=== PATIENT | female | born 1955 | race Caucasian/White ===

== ENCOUNTER 2022-06-16 10:01 | Outpatient (CLI) | payer MEDICARE ==
[2022-06-16 11:12] LABS: #Basophils 0.1 10x3/uL (0.0-0.2); #Eosinphils 0.2 10x3/uL (0.0-0.5); #Monocytes 0.7 10x3/uL (0.0-1.1); #Neutrophils 4.6 10x3/uL (1.5-8.4); %Basophils 0.9 % (0.0-2.0); %Eosinophils 2.6 % (0.0-6.0); %Lymphocytes 18.6 % (18.0-47.0); %Monocytes 10.2 % (0.0-10.0); %Neutrophils 67.3 % (40.0-75.0); Hemoglobin 12.8 g/dL (12.0-15.5); Mean Corpuscular HGB CONC 33.7 g/dL (32.0-36.0); Mean Corpuscular Hemoglobin 31.1 pg (27.0-33.0); Mean Corpuscular Volume 92.5 fl (81.6-98.3); Mean Platelet Volume 9.7 fl (7.4-10.4); Platelet Count 311 10x3/uL (150-450); Red Blood Cell (RBC) Count 4.11 10x6/uL (3.90-5.03); White Blood Cell (WBC) Count 6.9 10x3/uL (3.5-10.5)
[2022-06-16 11:38] LABS: Anion Gap 13 mmol/L (10-20); BUN (Urea Nitrogen) 17 mg/dL (9.8-20.1); Calc. Creatinine Clearance 0 mL/min (70-130); Calcium 9.2 mg/dL (7.8-10.44); Carbon Dioxide 27 mmol/L (23-31); Chloride 104 mmol/L (98-107); Estimated GFR 67; Glucose 89 mg/dL (80-115); Potassium 4.3 mmol/L (3.5-5.1); Sodium 140 mmol/L (136-145)
== END 2022-06-16 10:02 | disposition home or self-care (01) ==
LOC: LABBT 10:01
PROVIDERS: ATTEND Orthopaedic Surgery
DX: Z01.818 Encounter for other preprocedural examination (principal); M19.011 Primary osteoarthritis, right shoulder; Z20.822 Contact with and (suspected) exposure to COVID-19
CPT/HCPCS: 80048; 85025; 87811; 93005; 93010

== ENCOUNTER 2022-06-19 05:43 | Day surgery (SDC) | payer MEDICARE ==
[2022-06-17 14:44] VITALS: BMI 36.9
[2022-06-19] MEDS ORDERED: Vancomycin (BATCH) 1.5 GRAM/300 ML BAG ONE (06:07)
[2022-06-19] MEDS ORDERED: Tranexamic Acid 1,000 MG/10 ML VIAL ONE (06:07)
[2022-06-19] MEDS ORDERED: Sodium Chloride 0.9% 0 ML ONE (06:08)
[2022-06-19] MEDS ORDERED: Fentanyl 100 MCG/2 ML VIAL ONE ×3 (07:05→10:24)
[2022-06-19] MEDS ORDERED: Midazolam HCl 2 mg/2 ml Vial ONE (07:05)
[2022-06-19] MEDS ORDERED: Sodium Chloride 0.9% 100 ML ONE (07:17)
[2022-06-19] MEDS ORDERED: CEFAZOLIN 2 GM VIAL ONE (07:17)
[2022-06-19] MEDS ORDERED: PROPOFOL 200 MG/20 ML VIAL ONE (07:56)
[2022-06-19] MEDS ORDERED: Lidocaine 1% PF 5 ML VIAL ONE (07:56)
[2022-06-19] MEDS ORDERED: Rocuronium Bromide 10 MG/ML (10ML VIAL) ONE (07:56)
[2022-06-19] MEDS ORDERED: Bupivacaine HCl 0.5%/Epinephrine 1:200,000/PF 30 ml Vial ONE (07:56)
[2022-06-19] MEDS ORDERED: Ondansetron PF 4 MG/2 ML Vial ONE (07:56)
[2022-06-19] MEDS ORDERED: Metoprolol Tartrate 5 MG/5 ML VIAL ONE (07:56)
[2022-06-19] MEDS ORDERED: Dexamethasone 20 MG/5 ML VIAL ONE (07:56)
[2022-06-19] MEDS ORDERED: ePHEDrine 50 MG/ML VIAL ONE (07:56)
[2022-06-19] MEDS ORDERED: SUGAMMADEX SODIUM 200 MG/2 ML VIAL ONE ×2 (08:21→09:59)
[2022-06-19] MEDS ORDERED: Fentanyl 100 MCG/2 ML VIAL IV PRN (08:30)
[2022-06-19] MEDS ORDERED: Promethazine HCl 25 MG/ML VIAL IM PRN (08:30)
[2022-06-19] MEDS ORDERED: traMADol HCl 50 MG TAB PO PRN ×2 (08:30)
[2022-06-19] MEDS ORDERED: Zolpidem Tartrate 5 MG TAB PO PRN (08:30)
[2022-06-19] MEDS ORDERED: Ropivacaine 0.2% 550 ML 550 ML NERVE BLCK SCH (08:30)
[2022-06-19] MEDS ORDERED: Ondansetron PF 4 MG/2 ML Vial IVP PRN (08:30)
[2022-06-19] MEDS ORDERED: HYDROcodone/Acetaminophen 5/325 mg Tablet PO PRN ×2 (08:30)
[2022-06-19] MEDS ORDERED: Ketorolac Tromethamine 30 MG/ML VIAL ONE (10:29)
[2022-06-19] MEDS ORDERED: Ketorolac Tromethamine 30 MG/ML VIAL IVP SCH (12:00)
== END 2022-06-19 13:35 | disposition home or self-care (01) ==
LOC: SDC 05:43
PROVIDERS: ATTEND Orthopaedic Surgery
PROC: 0RRJ00Z Replacement of Right Shoulder Joint with Reverse Ball and Socket Synthetic Substitute, Open Approach (ICD-10-PCS; principal; 2022-06-19)
PROC: 3E0T3BZ Introduction of Anesthetic Agent into Peripheral Nerves and Plexi, Percutaneous Approach (ICD-10-PCS; 2022-06-19)
DX: M19.011 Primary osteoarthritis, right shoulder (principal); M75.21 Bicipital tendinitis, right shoulder; I10 Essential (primary) hypertension; K21.9 Gastro-esophageal reflux disease without esophagitis; Z79.899 Other long term (current) drug therapy
CPT/HCPCS: 23472; 64416; 93005; A4306; J3370; 93010; C1713; C1776; J0690; J1100; J1885; J2250; J2405; J2704; J2795; J3010; J3490

== ENCOUNTER 2022-06-19 21:45 | Observation (INO) | payer MEDICARE ==
[~2022-06-19 21:45] MED LIST: Iopamidol-370 76% 500 ML 1 ML ONE
[2022-06-19 22:58] LABS: #Lymphocytes 0.9 thou/uL (1.20-3.40); #Monocytes 1.2 thou/uL (0.11-0.59); #Neutrophils 12.5 thou/uL (1.40-6.50); %Basophils 0.1 % (0.0-1.0); %Eosinophils 0.2 % (0.0-10.0); %Lymphocytes 6.2 % (21.0-51.0); %Monocytes 8.4 % (0.0-10.0); %Neutrophils 85.1 % (42.0-75.0); Hemoglobin 12.8 g/dL (12.0-16.0); Mean Corpuscular HGB CONC 33.7 g/dL (32.0-36.0); Mean Corpuscular Hemoglobin 32.1 pg (27.0-31.0); Mean Corpuscular Volume 95.4 fL (78.0-98.0); Mean Platelet Volume 7.3 fL (7.4-10.4); Platelet Count 312 thou/uL (130-400); RBC Distribution Width 11.2 % (11.5-14.5); Red Blood Cell (RBC) Count 3.99 mill/uL (4.20-5.40); White Blood Cell (WBC) Count 14.7 thou/uL (4.8-10.8)
[2022-06-19] MEDS ORDERED: Acetaminophen 500 MG TAB ONE (22:58)
[2022-06-19 23:20] LABS: ALT (SGPT) 24 U/L (8-55); AST (SGOT) 30 U/L (5-34); Albumin 4.1 g/dL (3.4-4.8); Alkaline Phosphatase 83 U/L (40-110); Anion Gap 14 mmol/L (10-20); BUN (Urea Nitrogen) 17 mg/dL (9.8-20.1); Bilirubin, Total 0.2 mg/dL (0.2-1.2); Calc. Creatinine Clearance 0 mL/min (70-130); Calcium 9.2 mg/dL (7.8-10.44); Carbon Dioxide 26 mmol/L (23-31); Chloride 104 mmol/L (98-107); Estimated GFR 67; Globulin 3.1 g/dL (2.4-3.5); Glucose 102 mg/dL (80-115); Potassium 4.2 mmol/L (3.5-5.1); Protein, Total 7.2 g/dL (5.8-8.1); Sodium 140 mmol/L (136-145)
[2022-06-20] MEDS ORDERED: Acetaminophen 325 MG TAB PO PRN (03:10)
[2022-06-20 03:18] VITALS: BMI 36.9
[2022-06-20] MEDS: HYDROcodone/Acetaminophen 10/325 mg Tablet PO PRN ×2 (04:24→09:42)
[2022-06-20 04:39] LABS: SARS-CoV-2 NAA Rapid Test Not Detected (NotDetected)
[2022-06-20 12:50] VITALS: BP 121/70; TEMP 98.3
== END 2022-06-20 14:30 | disposition home or self-care (01) ==
LOC: ERS 21:45 → SURG A 06-20 01:51
PROVIDERS: ADMIT Student in an Organized Health Care Education/Training Program; ATTEND Student in an Organized Health Care Education/Training Program
PROC: 0RRJ00Z Replacement of Right Shoulder Joint with Reverse Ball and Socket Synthetic Substitute, Open Approach (ICD-10-PCS; principal; 2022-06-19)
PROC: 3E0T3BZ Introduction of Anesthetic Agent into Peripheral Nerves and Plexi, Percutaneous Approach (ICD-10-PCS; principal; 2022-06-19)
DX: R06.00 Dyspnea, unspecified (principal); Z20.822 Contact with and (suspected) exposure to COVID-19; I10 Essential (primary) hypertension; D72.829 Elevated white blood cell count, unspecified; E78.00 Pure hypercholesterolemia, unspecified; J45.909 Unspecified asthma, uncomplicated; Z79.899 Other long term (current) drug therapy; Z96.611 Presence of right artificial shoulder joint; M19.011 Primary osteoarthritis, right shoulder; M75.21 Bicipital tendinitis, right shoulder; K21.9 Gastro-esophageal reflux disease without esophagitis
CPT/HCPCS: 23472; 64416; 71045; 71275; 80053; 83880; 84484; 85025; 85379; 93005 ×2; 94640; 99285; A4306; C1713 ×9; C1776 ×3; G0378 ×2; J3370; U0002; 93010; J0690; J1100; J1885; J2250; J2405; J2704; J2795; J3010; J3490; J7620; Q9967